=== PATIENT | male | born 1955 | race Caucasian/White ===

== ENCOUNTER → 2016-12-22 | Outpatient (CLI) | payer OTHER ==
[~2016-12-22] VITALS: Ht 182.9 cm; Wt 145.1 kg
[~2016-12-22] MED LIST: ASPI81TA21 PO; ATOR40TA PO; CENTTAB47 PO; LIDOCAINE 2% INJ 100 MG/5 ML SDV (FOR ANES.) As Ordered ONE; LOSA100T PO; METF500T PO; NS 1,000 ML IV SCH; PRIM50TA6 PO; PROP80CA PO; PROPOFOL 200 MG/20 ML VIAL As Ordered ONE; SULF500T2 PO; TANZ1INJ2 SC
--- NOTE | 2016-12-22 11:08 | ROOR ---
Patient Name: Zhou Rolle Procedure Date: 12/22/2016 10:52 AM Date of : 1955 Age: 61 Room: [facility] Gender: Male Note Status: Finalized Procedure: Upper GI endoscopy + Biopsies Indications: Melena Providers: Nahum Aguilar MD Referring MD: KATHARINE LAGUNAS JR, MD Requesting Provider: Medicines: Monitored Anesthesia Care Complications: No immediate complications. Procedure: Pre-Anesthesia Assessment: - The heart rate, respiratory rate, oxygen saturations, blood pressure, adequacy of pulmonary ventilation, and response to care were monitored throughout the procedure. The Colonoscope was introduced through the anus and advanced to the second part of duodenum. The upper GI endoscopy was accomplished without difficulty. The patient tolerated the procedure well. Findings: The Z-line was irregular and was found 44 cm from the incisors. The exam of the stomach was otherwise normal. Three non-bleeding cratered duodenal ulcers with no stigmata of bleeding were found in the duodenal bulb. Biopsies were taken with a cold forceps in the gastric antrum for Helicobacter pylori testing. The exam was otherwise without abnormality. Impression: - Z-line irregular, 44 cm from the incisors. - Multiple non-bleeding duodenal ulcers with no stigmata of bleeding. - The examination was otherwise normal. - Biopsies were taken with a cold forceps for Helicobacter pylori testing. - The examination was otherwise normal. Recommendation: - Patient has a contact number available for emergencies. The signs and symptoms of potential delayed complications were discussed with the patient. Return to normal activities tomorrow. Written discharge instructions were provided to the patient. - Resume previous diet. - Discharge patient to home. - Use Prilosec (omeprazole) 40 mg PO daily. - Await pathology results. - Telephone GI clinic for pathology results in 1 week. - Check Portal Online for Path Results.([email or web address]) - Return to referring physician. - The findings and recommendations were discussed with the patient's family. Nahum Aguilar MD Nahum Aguilar MD 12/22/2016 11:07:56 AM This report has been signed electronically. Number of Addenda: 0 Note Initiated On: 12/22/2016 10:52 AM Estimated Blood Loss: Estimated blood loss: none.
--- NOTE | 2016-12-22 11:24 | ROOR ---
Patient Name: Zhou Rolle Procedure Date: 12/22/2016 10:51 AM Date of : 1955 Age: 61 Room: [facility] Gender: Male Note Status: Finalized Procedure: Colonoscopy to Cecum + Cold Snare Polypectomy + Hemoclip Indications: Screening for colorectal malignant neoplasm, Last colonoscopy 10 years ago Providers: Nahum Aguilar MD Referring MD: KATHARINE LAGUNAS JR, MD Requesting Provider: Medicines: Monitored Anesthesia Care Complications: No immediate complications. Procedure: Pre-Anesthesia Assessment: - The heart rate, respiratory rate, oxygen saturations, blood pressure, adequacy of pulmonary ventilation, and response to care were monitored throughout the procedure. The Endoscope was introduced through the mouth, and advanced to the cecum, identified by appendiceal orifice and ileocecal valve. The colonoscopy was performed without difficulty. The patient tolerated the procedure well. The quality of the bowel preparation was good. Findings: The perianal and digital rectal examinations were normal. Non-bleeding internal hemorrhoids were found during retroflexion. The hemorrhoids were small and Grade I (internal hemorrhoids that do not prolapse). Multiple small and large-mouthed diverticula were found in the recto-sigmoid colon, sigmoid colon and descending colon. A medium polyp was found in the proximal transverse colon. The polyp was sessile. The polyp was removed with a cold snare. Resection and retrieval were complete. To prevent bleeding after the polypectomy, one hemostatic clip was successfully placed (MR conditional). There was no bleeding at the end of the procedure. The exam was otherwise without abnormality on direct and retroflexion views. Impression: - Non-bleeding internal hemorrhoids. - Diverticulosis in the recto-sigmoid colon, in the sigmoid colon and in the descending colon. - One medium polyp in the proximal transverse colon, removed with a cold snare. Resected and retrieved. Clip (MR conditional) was placed. - The examination was otherwise normal on direct and retroflexion views. - The exam was otherwise normal to the cecum. Recommendation: - Patient has a contact number available for emergencies. The signs and symptoms of potential delayed complications were discussed with the patient. Return to normal activities tomorrow. Written discharge instructions were provided to the patient. - High fiber diet. - Discharge patient to home. - Continue present medications. - Await pathology results. - Telephone GI clinic for pathology results in 1 week. - Repeat colonoscopy in 5 years for surveillance based on pathology results. - Return to referring physician. - The findings and recommendations were discussed with the patient's family. Nahum Aguilar MD Nahum Aguilar MD 12/22/2016 11:24:31 AM This report has been signed electronically. Number of Addenda: 0 Note Initiated On: 12/22/2016 10:51 AM Estimated Blood Loss: Estimated blood loss: none.
[2016-12-22 11:50] VITALS: BP 145/93
== END | disposition home or self-care (01) ==
LOC: M OPP 09:58
PROVIDERS: ATTEND Internal Medicine Gastroenterology
DX: Z12.11 Encounter for screening for malignant neoplasm of colon (principal); D12.3 Benign neoplasm of transverse colon; K64.0 First degree hemorrhoids; K57.30 Diverticulosis of large intestine without perforation or abscess without bleeding; K92.1 Melena; K22.8 Other specified diseases of esophagus; K26.9 Duodenal ulcer, unspecified as acute or chronic, without hemorrhage or perforation; K51.90 Ulcerative colitis, unspecified, without complications; I10 Essential (primary) hypertension; E78.5 Hyperlipidemia, unspecified; E11.9 Type 2 diabetes mellitus without complications; M19.90 Unspecified osteoarthritis, unspecified site; M54.5 Low back pain; G47.30 Sleep apnea, unspecified; Z79.82 Long term (current) use of aspirin; Z79.84 Long term (current) use of oral hypoglycemic drugs; Z79.899 Other long term (current) drug therapy; Z80.3 Family history of malignant neoplasm of breast; F17.290 Nicotine dependence, other tobacco product, uncomplicated

== ENCOUNTER → 2017-04-26 | Outpatient (CLI) | payer OTHER ==
[~2017-04-26] MED LIST changes: -ATOR40TA PO; +ATOR40TA75 PO; -LIDOCAINE 2% INJ 100 MG/5 ML SDV (FOR ANES.) As Ordered ONE; -LOSA100T PO; +LOSA100T8 PO; -METF500T PO; +METF500T13 PO; -NS 1,000 ML IV SCH; -PROPOFOL 200 MG/20 ML VIAL As Ordered ONE
--- NOTE | 2017-04-27 08:39 | REP ---
MRI LUMBAR SPINE WITHOUT CONTRAST: HISTORY: Back pain. Decreased signal intensity on T2-weighted images is present in the L4-5 intervertebral disc. The disc is decreased in height. These findings are consistent with disc degeneration. There is no disc bulge or herniation at the L1-2 through L3-4 levels. There is hypertrophy of the posterior articulating facets at the L2-3 and L3-4 levels. The nerves exit the neural foramina without compression. A diffuse disc bulge is present at the L4-5 level. There is minimal compression of the thecal sac. There is hypertrophy of the posterior articulating facets. There is grade 1 spondylolisthesis of L4 on 5. This is associated with L4 pars defects. There is compression of the L4 nerves in the neural foramina. A diffuse disc bulge is present at the L5-S1 level. There is no thecal sac compression. There is hypertrophy of the posterior articulating facets. There is compression of the left L5 nerve in the neural foramen. The right L5 nerve exits the neural foramen without compression. The conus medullaris is normal in appearance terminating at the level of the T12-L1 intervertebral disc. A hemangioma is present in the L4 vertebral body. Increased signal intensity on T2-weighted images is present in the end plates of the L4 and 5 vertebral bodies. This represents degenerative change. IMPRESSION: 1. Diffuse disc bulge at the L4-5 level with minimal thecal sac compression. There is grade 1 spondylolisthesis of L4 on 5 with associated L4 pars defects. There is compression of the L4 nerves in the neural foramina. 2. Diffuse disc bulge at the L5-S1 level without thecal sac compression. There is compression of the left L5 nerve in the neural foramen. Signed by Arash Love MD 04/27/2017 08:58 A
== END ==
LOC: M RAD 17:03
PROVIDERS: ATTEND Physician Assistant
DX: M51.06 Intervertebral disc disorders with myelopathy, lumbar region (principal); M43.06 Spondylolysis, lumbar region

== ENCOUNTER → 2019-09-11 | Outpatient (REF) | payer OTHER ==
[2019-09-14 00:07] LABS: ANTINUCLEAR ANTIBODIES DIRECT Negative (Negative); Lyme Disease IgG/IgM Antibodie <0.91 ISR (0.00-0.90); Lyme Disease IgM Ab Quantitati <0.80 index (0.00-0.79)
== END ==
LOC: M LAB REF 16:46
PROVIDERS: ATTEND Internal Medicine
DX: M25.50 Pain in unspecified joint (principal)

== ENCOUNTER → 2020-05-12 | Outpatient (REF) | payer OTHER ==
[~2020-05-12] MED LIST changes: +ECOT81TA5 PO; +HUMA100I3 SC; +INSULANT SC; +JARD1TAB PO; +OXYC1TAB23 PO; +TANZEUM
== END ==
LOC: M LAB REF 15:33
PROVIDERS: ATTEND Otolaryngology
DX: D23.21 Other benign neoplasm of skin of right ear and external auricular canal (principal)

== ENCOUNTER → 2020-05-25 | Outpatient (CLI) | payer OTHER | LOC: M LABSMTC 08:25 | PROVIDERS: ATTEND Anesthesiology | DX: Z01.812 Encounter for preprocedural laboratory examination (principal); Z20.828 Contact with and (suspected) exposure to other viral communicable diseases | CPT/HCPCS: C9803; U0003 ==

== ENCOUNTER 2020-05-30 07:14 | Day surgery (SDC) | payer OTHER ==
[~2020-05-30] VITALS: Ht 180.3 cm; Wt 151.0 kg
[~2020-05-30 07:14] MED LIST changes: -HUMA100I3 SC; -INSULANT SC; -JARD1TAB PO; +LR 1,000 ML IV ONE; -OXYC1TAB23 PO; +ceFAZolin SOD 2 GM in IV 1 EA IV ONE
[2020-05-30] MEDS ORDERED: LIDOCAINE 2% 100MG/5ML SDV (FOR ANES.) As Ordered ONE (08:04)
[2020-05-30] MEDS ORDERED: KETOROLAC 60MG 2ML VIAL As Ordered ONE (08:04)
[2020-05-30] MEDS ORDERED: dexameTHASONE 4 MG/ML 1ML VIAL (J1100 PER 1MG) As Ordered ONE (08:04)
[2020-05-30] MEDS ORDERED: ONDANSETRON 4MG/2ML VIAL As Ordered ONE (08:04)
[2020-05-30] MEDS ORDERED: propofoL 500 MG/50 ML VIAL As Ordered ONE (08:05)
[2020-05-30] MEDS ORDERED: fentaNYL 100 MCG/2 ML INJECTION (J3010) As Ordered ONE (08:05)
[2020-05-30] MEDS ORDERED: MIDAZOLAM INJ 2MG/2ML VIAL (J2250 PER 1MG) As Ordered ONE (08:05)
[2020-05-30] MEDS ORDERED: JARD1TAB PO (08:21)
[2020-05-30] MEDS ORDERED: INSULANT SC (08:21)
[2020-05-30] MEDS ORDERED: HUMA100I3 SC (08:21)
[2020-05-30] MEDS ORDERED: BUPIVACAINE HCL 0.25% 30ML VIAL As Ordered ONE ×2 (08:37→09:49)
[2020-05-30] MEDS ORDERED: LIDOCAINE 1% SDV 30ML VIAL As Ordered ONE (08:37)
[2020-05-30] MEDS ORDERED: OXYC1TAB23 PO (10:32)
[2020-05-30 11:15] VITALS: BP 151/75
[2020-05-30] MEDS ORDERED: KETAMINE HCL 200 MG/20 ML VIAL As Ordered ONE (16:19)
--- NOTE | 2020-06-01 11:57 | ECGEPIP ---
[facility] Test Date: 2020-05-30 Pat Name: KERRY EASTMAN Department: Room: - Gender: Male Oxygraph Operator: MARQUES : 1955 Requested By: Jerrod Orona Order Number: [id number] Reading MD: David Alejandre Measurements Intervals Larsen Rate: 72 P: 38 RI: 189 QRS: 14 QRSD: 110 T: 37 QT: 391 QTc: 429 Interpretive Statements SINUS RHYTHM POSSIBLE PRIOR INFERIOR INFARCT No prior tracing in the system Electronically Signed on 06-01-2020 11:57:09 EDT by David Alejandre
--- NOTE | 2020-06-12 11:09 | ROOPDOC ---
[facility] Report Of Operation Report of Operation DATE OF PROCEDURE: 05/30/20 PREPROCEDURE DIAGNOSES: lipoma upper back (scapular area) x 2. POSTPROCEDURE DIAGNOSES: same. PROCEDURE: Excision of lipoma at the upper back area/scapular area x 2. SURGEON: Juan Baird MD CAN WORKER: ANESTHESIA: Monitored Anesthesia Care plus lcoal anesthesia (1% lidocaine, 1/4% Marcaine. ESTIMATED BLOOD LOSS: Approximately 20 mL. COMPLICATIONS: none REMARKS: Patient is a 64-year-old male with long-standing soft tissue lump on his bilateral upper back area at the scapular level that has gradually increasing in size.. PROCEDURE NOTE: He is a larger lipoma on the left side roughly about 7 x 6 cm measured externally but this seems to be located subcutaneously. The lipoma on the right side is located deeper within the fascia of the back muscles and measures about 4 x 4 centimeters externally. This were both removed. DESCRIPTION OF PROCEDURE: Patient received a dose of Ancef 2 g IV for wound prophylaxis. He was brought to the operating room, placed on a prone position. Monitoring leads were placed. He was provided oxygen with face mask. IV sedation and monitored anesthesia care then started. His back area was prepped and draped in usual sterile fashion.We paused for a surgical timeout using both pre-incision safety checklist to verify correct patient, procedure site and additional clinical information prior to beginning the procedure I started with the seemingly Reyes lipoma over on the patient's right side. This measures 7 x 6 cm externally, fatty and lobulated texture on palpation. This does not seem to be tethered to underlying tissues. A field block using 1% lidocaine and 1/4% Marcaine was infiltrated to the subcutaneous tissue around the margins of the lump and intradermally along the anticipated incision line. A cruciate skin incision was then created and we slowly came down through the superficial subcutaneous tissue and once the margins of the lipoma was encountered we circumferentially dissected around the lipoma which is a thin filmy capsule around it. Using both blunt and sharp dissection the lipoma was removed in 2 pieces. After removal of the lipoma this created a good sized cavity. I palpated around for remnants and none was found this was then closed in multiple deep layers of 3-0 Vicryl at the subcutaneous space to close the cavity and 4-0 Monocryl placed subcutaneous to regularly to close the skin. Steri-Strips and gauze dressings then placed. I then moved to the right side which is a smaller size by palpation but no the margins aren't well as the marcated as the other side. Again local anesthesia w as infiltrated as a field block. A transverse skin incision was then created. I initially thought that the lipoma was subcutaneous and I removed the fatty tissue underneath this but on palpation after removal of the lobe related fatty tissue there is a deeper component of this lipoma which seems to be underneath the overlying fascia of the muscles on the area. Thus I opened up the fascia and encountered the fatty lobulated lipoma and circumferentially dissected this off the muscles. After checking for hemostasis the fascia was closed with 2-0 Vicryl in a running fashion. The subcutaneous tissue was closed with interrupted sutures of 3-0 Vicryl to close the cavity and the skin incisions was closed with 4-0 Monocryl in subcuticular fashion. Steri-Strips, gauze dressing and Tegaderm also placed over the area. Patient's them promptly awakened, and brought to recovery room in a stable co ndition. JUAN BAIRD MD Jun 12, 2020 11:09
== END 2020-05-30 11:45 | disposition home or self-care (01) ==
LOC: M SDC 07:14
PROVIDERS: ATTEND Surgery
DX: D17.1 Benign lipomatous neoplasm of skin and subcutaneous tissue of trunk (principal); E11.9 Type 2 diabetes mellitus without complications; I10 Essential (primary) hypertension; R25.1 Tremor, unspecified; E78.00 Pure hypercholesterolemia, unspecified; K51.90 Ulcerative colitis, unspecified, without complications; F17.290 Nicotine dependence, other tobacco product, uncomplicated; G47.33 Obstructive sleep apnea (adult) (pediatric); Z79.84 Long term (current) use of oral hypoglycemic drugs; Z79.899 Other long term (current) drug therapy
CPT/HCPCS: 11406; 88304; 93005; J0690; J1100; J1885; J2250; J2405; J3010

== ENCOUNTER → 2020-07-10 | Outpatient (CLI) | payer SELFPAY ==
[~2020-07-10] MED LIST changes: +HUMA100I3 SC; +INSULANT SC; +JARD1TAB PO; -LR 1,000 ML IV ONE; +OXYC1TAB23 PO; -ceFAZolin SOD 2 GM in IV 1 EA IV ONE
== END ==
LOC: M LABSMTC 12:51
PROVIDERS: ATTEND Pediatrics
DX: Z20.828 Contact with and (suspected) exposure to other viral communicable diseases (principal)

== ENCOUNTER → 2021-09-25 | Outpatient (REF) | payer MEDICARE, OTHER ==
[2021-09-25 17:43] LABS: FOLATE 16.8 NG/ML
[2021-09-25 17:49] LABS: MAU/CREAT RATIO 54.1 MCG/MG (0.0-30.0)
== END ==
LOC: M LAB REF 16:32
PROVIDERS: ATTEND Internal Medicine
DX: E11.42 Type 2 diabetes mellitus with diabetic polyneuropathy (principal); R41.3 Other amnesia

== ENCOUNTER 2022-12-29 07:19 | Day surgery (SDC) | payer MEDICARE, OTHER ==
[~2022-12-29] VITALS: Ht 180.3 cm; Wt 143.3 kg
[~2022-12-29 07:19] MED LIST changes: +CENT1TAB PO; +DULA3PEN SC; +GABA-282 PO; +KRIL1CAP15 PO; +LOSA100T5 PO; +METF-838 PO; +METH-1165 PO; +NS 1,000 ML IV ONE
[2022-12-29] MEDS ORDERED: fentaNYL 100 MCG/2 ML INJECTION As Ordered ONE (08:49)
[2022-12-29] MEDS ORDERED: LIDOCAINE 2% 100MG/5ML SDV (FOR ANES.) As Ordered ONE (08:49)
[2022-12-29] MEDS ORDERED: propofoL 200 MG/20 ML VIAL As Ordered ONE (08:49)
[2022-12-29 09:30] VITALS: BP 142/74
== END 2022-12-29 09:33 | disposition home or self-care (01) ==
LOC: M OPP 07:19
PROVIDERS: ATTEND Internal Medicine Gastroenterology
DX: K64.0 First degree hemorrhoids (principal); K57.30 Diverticulosis of large intestine without perforation or abscess without bleeding; K51.50 Left sided colitis without complications; K22.89 Other specified disease of esophagus; F17.200 Nicotine dependence, unspecified, uncomplicated; G47.33 Obstructive sleep apnea (adult) (pediatric); Z99.89 Dependence on other enabling machines and devices; Z79.02 Long term (current) use of antithrombotics/antiplatelets; Z79.4 Long term (current) use of insulin; Z79.82 Long term (current) use of aspirin; Z79.891 Long term (current) use of opiate analgesic; Z79.899 Other long term (current) drug therapy
CPT/HCPCS: 43239; 45380; 88305; J3010

== ENCOUNTER 2023-01-07 02:10 | Emergency (ER) | payer MEDICARE, OTHER ==
[~2023-01-07 02:10] MED LIST changes: -NS 1,000 ML IV ONE
[2023-01-07 03:12] LABS: BASO # 0.1 10^3/uL (0.0-0.2); BASO % 0.8 % (0.0-1.0); EOS # 0.4 10^3/uL (0.0-0.5); EOS % 4.4 % (0.0-3.0); HEMATOCRIT 48.2 % (42.0-52.0); LYMPH # 2.9 10^3/uL (1.5-5.0); LYMPH % 33.3 % (24.0-44.0); MEAN CORPUSCULAR HEMOGLOBIN 29.5 pg (27.0-33.0); MEAN CORPUSCULAR HGB CONC 33.2 g/dl (32.0-36.5); MEAN CORPUSCULAR VOLUME 88.8 fl (80.0-96.0); MONO # 0.8 10^3/uL (0.0-0.8); MONO % 9.7 % (2.0-8.0); NEUTROPHILS # 4.4 10^3/uL (1.5-8.5); NEUTROPHILS % 51.6 % (36.0-66.0); PLATELET COUNT, AUTOMATED 234 10^3/uL (150-450); RED BLOOD COUNT 5.43 10^6/uL (4.30-6.10); WHITE BLOOD COUNT 8.6 10^3/uL (4.0-10.0)
[2023-01-07 03:37] LABS: BLOOD UREA NITROGEN 20 MG/DL (9-23); CALCIUM LEVEL 8.4 MG/DL (8.3-10.6); CARBON DIOXIDE LEVEL 24 MMOL/L (20-31); CHLORIDE LEVEL 103 MMOL/L (98-107); CREATININE FOR GFR 0.64 MG/DL (0.70-1.30); GLOMERULAR FILTRATION RATE > 60.0 (>49); GLUCOSE, FASTING 114 MG/DL (74-106); MAGNESIUM LEVEL 1.8 MG/DL (1.8-2.4); POTASSIUM SERUM 4.3 MMOL/L (3.5-5.1); SODIUM LEVEL 138 MMOL/L (136-145)
[2023-01-07 05:45] VITALS: BP 118/62
[2023-01-07] MEDS ORDERED: APIXABAN 5 MG TAB (ELIQUIS) PO ONE (06:05)
[2023-01-07] MEDS ORDERED: ELIQ5TAB PO (06:05)
== END 2023-01-07 06:24 | disposition home or self-care (01) ==
LOC: M ED 02:10
DX: I48.91 Unspecified atrial fibrillation (principal); I10 Essential (primary) hypertension; E11.9 Type 2 diabetes mellitus without complications; E78.5 Hyperlipidemia, unspecified; G25.0 Essential tremor; G47.33 Obstructive sleep apnea (adult) (pediatric); F17.200 Nicotine dependence, unspecified, uncomplicated; Z88.8 Allergy status to other drugs, medicaments and biological substances; Z79.84 Long term (current) use of oral hypoglycemic drugs; Z79.899 Other long term (current) drug therapy

== ENCOUNTER → 2023-04-05 | Outpatient (CLI) | payer MEDICARE, OTHER ==
[~2023-04-05] MED LIST changes: +ELIQ5TAB PO
== END ==
LOC: M LAB 13:28
PROVIDERS: ATTEND Internal Medicine Gastroenterology
DX: Z79.899 Other long term (current) drug therapy (principal); B96.81 Helicobacter pylori [H. pylori] as the cause of diseases classified elsewhere

== ENCOUNTER → 2023-10-06 | Outpatient (CLI) | payer MEDICARE, OTHER | LOC: M RAD 07:21 | PROVIDERS: ATTEND Internal Medicine | DX: K76.0 Fatty (change of) liver, not elsewhere classified (principal) ==

== ENCOUNTER → 2024-03-28 | Outpatient (REF) | payer MEDICARE, OTHER ==
[2024-03-28 14:44] LABS: IRON (FE) 64 UG/DL (65-175); PERCENT SATURATION 19.9 % (19.7-50.0); TOTAL IRON BINDING CAPACITY 322 UG/DL (250-425)
[2024-03-28 14:45] LABS: FERRITIN 52.9 NG/ML (10.5-307.3)
[2024-03-28 14:57] LABS: HEPATITIS B SURFACE ANTIGEN NEGATIVE (NEGATIVE)
[2024-03-28 15:19] LABS: HEPATITIS C VIRUS ABY INDEX 0.58 INDEX (<0.8)
== END ==
LOC: M LAB REF 13:12
PROVIDERS: ATTEND Internal Medicine
DX: K75.81 Nonalcoholic steatohepatitis (NASH) (principal); K74.00 Hepatic fibrosis, unspecified

== ENCOUNTER → 2024-09-20 | Outpatient (CLI) | payer MEDICARE, OTHER ==
[~2024-09-20] MED LIST changes: +GABA-1172 PO; -GABA-282 PO
== END ==
LOC: M WUC 14:38
PROVIDERS: ATTEND Student in an Organized Health Care Education/Training Program
DX: J20.9 Acute bronchitis, unspecified (principal)

== ENCOUNTER → 2024-10-26 | Outpatient (CLI) | payer MEDICARE, OTHER | LOC: M RAD 08:40 | PROVIDERS: ATTEND Internal Medicine | DX: K74.00 Hepatic fibrosis, unspecified (principal) ==

== ENCOUNTER → 2025-03-05 | Outpatient (REF) | payer MEDICARE, OTHER | LOC: M LAB REF 08:44 | PROVIDERS: ATTEND Internal Medicine | DX: K74.00 Hepatic fibrosis, unspecified (principal) ==